=== PATIENT | female | born 1945 | race Caucasian/White ===

== ENCOUNTER 2016-05-18 23:02 | Inpatient (IN) | payer OTHER ==
[~2016-05-18] VITALS: Ht 154.9 cm; Wt 34.0 kg
[2016-05-19 01:10] LABS: CALCIUM 8.5 mg/dL (8.5-10.1); CARBON DIOXIDE 28.5 mmol/L (21-32); CHLORIDE SERUM 106 mmol/L (98-107); CREATININE SERUM 0.7 mg/dL (0.6-1.0); GFR1 > 60 mL/min; GLUCOSE SERUM 109 mg/dL (74-106); SODIUM SERUM 141 mmol/L (136-145)
[2016-05-19 01:14] LABS: ALBUMIN 2.6 g/dL (3.4-5.0); ALKALINE PHOSPHATASE 121 U/L (46-116); ALT/SGPT 21 U/L (14-59); AST/SGOT 31 U/L (15-37); BILIRUBIN TOTAL 0.26 mg/dL (0.20-1.00); PLATELET COUNT 314 x10^3mcL (130-400); TOTAL PROTEIN, SERUM 8.7 g/dL (6.4-8.2)
[2016-05-19 01:15] LABS: RED CELL DISTRIBUTION WIDTH 15.8 % (11.5-14.5)
[2016-05-19 01:39] LABS: BAND NEUTROPHIL 2 % (0-10); METAMYELOCTE 1 % (0-2); MONOCYTE 5 % (0-7); SEGMENTED NEUTROPHILS 68 % (37-75)
[2016-05-19 01:43] LABS: ovalocyte/elliptocyte 1+; rbc morphology (normal/abnorm) ABNORMAL (NORMAL)
[2016-05-19 01:44] LABS: PLATELET MORPHOLOGY FEW LARGE PLATELET
[2016-05-19] MEDS ORDERED: MOT800 PO (01:56)
[2016-05-19 02:48] LABS: MAGNESIUM 2.1 mg/dL (1.8-2.4); PHOSPHOROUS 3.8 mg/dL (2.5-4.9)
[2016-05-19 02:49] LABS: CHOLESTEROL/HDL RATIO 2.5
[2016-05-19 02:56] LABS: FREE T4 1.15 ng/dL (0.76-1.46); FREE THYROXINE INDEX 2.1 ug/dL (1.4-4.5); T4(THYROXINE) 6.9 ug/dL (4.7-13.3)
[2016-05-19 03:16] LABS: T3 TOTAL 0.77 ng/mL
[2016-05-19 03:48] VITALS: BP 133/82
[2016-05-19 05:10] LABS: microscopic required? YES; urine erythrocyte 3+ (NEGATIVE)
[2016-05-19 05:31] LABS: AMPHETAMINE QUAL UR POSITIVE (NEG <=1000)
[2016-05-19 08:50] LABS: IRON 17 ug/dL (50-170); TOTAL IRON BINDING CAPACITY 454 ug/dL (250-450)
[2016-05-19 08:51] VITALS: BP 128/68
[2016-05-19 08:58] LABS: RED BLOOD CELLS 4.33 M/mm3 (4.10-5.10)
[2016-05-19 14:40] VITALS: BP 107/67
[2016-05-19 18:03] VITALS: BP 117/76
[2016-05-19 21:37] VITALS: BP 128/55
[2016-05-20 06:19] VITALS: BP 114/63
[2016-05-20 08:58] VITALS: BP 126/60
[2016-05-20 17:12] VITALS: BP 138/62
[2016-05-20 21:36] VITALS: BP 123/61
[2016-05-21 05:37] VITALS: BP 137/76
[2016-05-21 06:15] LABS: BASOPHIL % 0.6 % (0-2); PLATELET COUNT 261 x10^3mcL (130-400)
[2016-05-21 06:25] LABS: CALCIUM 7.8 mg/dL (8.5-10.1); CARBON DIOXIDE 27.4 mmol/L (21-32); CHLORIDE SERUM 107 mmol/L (98-107); CREATININE SERUM 0.6 mg/dL (0.6-1.0); GFR1 > 60 mL/min; GLUCOSE SERUM 76 mg/dL (74-106); MAGNESIUM 1.8 mg/dL (1.8-2.4); PHOSPHOROUS 2.5 mg/dL (2.5-4.9); POTASSIUM SERUM 3.7 mmol/L (3.5-5.1); SODIUM SERUM 139 mmol/L (136-145)
[2016-05-21 07:12] LABS: RED CELL DISTRIBUTION WIDTH 17.4 % (11.5-14.5)
[2016-05-21 09:49] LABS: rbc morphology (normal/abnorm) ABNORMAL (NORMAL)
[2016-05-21 11:00] VITALS: BP 125/69
== END 2016-05-21 16:05 | disposition home or self-care (01) | DRG 480 ==
LOC: ED 23:02 → MU 05-19 01:44 → DU 05-19 01:44 → MU 05-19 16:13
PROVIDERS: Emergency Medicine; Family Medicine; Neuromusculoskeletal Medicine, Sports Medicine; ADMIT Family Medicine
PROC: 0QS704Z Reposition Left Upper Femur with Internal Fixation Device, Open Approach (ICD-10-PCS; principal; 2016-05-19 13:30)
DX: S72.012A Unspecified intracapsular fracture of left femur, initial encounter for closed fracture (principal); N17.0 Acute kidney failure with tubular necrosis; E43 Unspecified severe protein-calorie malnutrition; N39.0 Urinary tract infection, site not specified; S40.811A Abrasion of right upper arm, initial encounter; E11.65 Type 2 diabetes mellitus with hyperglycemia; E11.51 Type 2 diabetes mellitus with diabetic peripheral angiopathy without gangrene; D50.9 Iron deficiency anemia, unspecified; F17.210 Nicotine dependence, cigarettes, uncomplicated; W01.0XXA Fall on same level from slipping, tripping and stumbling without subsequent striking against object, initial encounter; Y92.9 Unspecified place or not applicable
CPT/HCPCS: 80307; 82962; 83880; 84439; 97110-GP; 97116-GP; 97530-GP; C1713; J0690; J0696; J1644; J1885; J2175; J2250; J2270; J3010; J3490; J7030; Q0092

== ENCOUNTER 2016-06-28 17:35 | Emergency (ER) | payer OTHER ==
[~2016-06-28] VITALS: Ht 154.9 cm; Wt 31.9 kg
[~2016-06-28 17:35] MED LIST: MOT800 PO
[2016-06-28 19:34] VITALS: BP 133/67
== END 2016-06-28 19:20 | disposition home or self-care (01) ==
LOC: ED 17:35
DX: M54.30 Sciatica, unspecified side (principal); M25.552 Pain in left hip; I10 Essential (primary) hypertension; E11.9 Type 2 diabetes mellitus without complications; F17.210 Nicotine dependence, cigarettes, uncomplicated; Z79.1 Long term (current) use of non-steroidal anti-inflammatories (NSAID); Z98.890 Other specified postprocedural states

== ENCOUNTER 2017-10-27 20:34 | Emergency (ER) | payer OTHER ==
[2017-10-27 22:44] VITALS: BP 128/73
== END 2017-10-27 22:44 | disposition home or self-care (01) ==
LOC: ED 20:34
DX: L03.116 Cellulitis of left lower limb (principal)

== ENCOUNTER 2017-11-17 22:00 | Inpatient (IN) | payer OTHER ==
[~2017-11-17] VITALS: Ht 157.5 cm; Wt 32.2 kg
[2017-11-17 23:17] LABS: ALKALINE PHOSPHATASE 115 U/L (46-116); ALT/SGPT 16 U/L (14-59); AST/SGOT 24 U/L (15-37); BILIRUBIN TOTAL 0.2 mg/dL (0.20-1.00); CALCIUM 8.4 mg/dL (8.5-10.1); CARBON DIOXIDE 25.2 mmol/L (21-32); CHLORIDE SERUM 102 mmol/L (98-107); CREATININE SERUM 0.6 mg/dL (0.6-1.0); GLUCOSE SERUM 79 mg/dL (74-106); SODIUM SERUM 137 mmol/L (136-145)
[2017-11-17 23:18] LABS: ALBUMIN 2.1 g/dL (3.4-5.0); TOTAL PROTEIN, SERUM 9.5 g/dL (6.4-8.2)
[2017-11-17 23:19] LABS: POTASSIUM SERUM 2.9 mmol/L (3.5-5.1)
[2017-11-17 23:33] LABS: BASOPHIL % 1.1 % (0-2); PLATELET COUNT 386 x10^3mcL (130-400); RED CELL DISTRIBUTION WIDTH 17.5 % (11.5-14.5)
[2017-11-18 01:01] VITALS: BP 181/85
[2017-11-18 01:52] LABS: CHOLESTEROL/HDL RATIO 2.7; MAGNESIUM 1.7 mg/dL (1.8-2.4); PHOSPHOROUS 2.7 mg/dL (2.5-4.9)
[2017-11-18 01:53] LABS: T3 TOTAL 0.66 ng/mL
[2017-11-18 02:17] LABS: FREE T4 0.91 ng/dL (0.76-1.46); FREE THYROXINE INDEX 1.9 ug/dL (1.4-4.5); T4(THYROXINE) 5.8 ug/dL (4.7-13.3)
[2017-11-18 05:53] VITALS: BP 151/82
[2017-11-18 06:23] LABS: UA SPECIFIC GRAVITY 1.025 (1.005-1.035); microscopic required? YES; urine erythrocyte NEGATIVE (NEGATIVE)
[2017-11-18 09:19] VITALS: BP 146/84
[2017-11-18 10:03] LABS: RED BLOOD CELLS 4.64 M/mm3 (4.10-5.10)
[2017-11-18 11:00] LABS: TOTAL IRON BINDING CAPACITY 298 ug/dL (250-450)
[2017-11-18 11:05] LABS: IRON 15 ug/dL (50-170)
[2017-11-18 16:13] VITALS: Ht 157.5 cm; Wt 32.2 kg
[2017-11-18 17:33] VITALS: BP 131/70
[2017-11-18 17:44] LABS: BASOPHIL % 0.9 % (0-2); PLATELET COUNT 346 x10^3mcL (130-400); RED CELL DISTRIBUTION WIDTH 18.2 % (11.5-14.5)
[2017-11-18 17:48] LABS: CALCIUM 8.3 mg/dL (8.5-10.1); CARBON DIOXIDE 27.1 mmol/L (21-32); CHLORIDE SERUM 105 mmol/L (98-107); CREATININE SERUM 0.7 mg/dL (0.6-1.0); GLUCOSE SERUM 95 mg/dL (74-106); POTASSIUM SERUM 4.3 mmol/L (3.5-5.1); SODIUM SERUM 136 mmol/L (136-145)
[2017-11-18 21:22] VITALS: BP 148/84
[2017-11-19 04:49] VITALS: BP 166/86
[2017-11-19 09:15] VITALS: BP 121/81
[2017-11-19 12:29] LABS: BASOPHIL % 0.6 % (0-2); PLATELET COUNT 319 x10^3mcL (130-400); RED CELL DISTRIBUTION WIDTH 17.7 % (11.5-14.5)
[2017-11-19 12:36] LABS: CALCIUM 8.1 mg/dL (8.5-10.1); CARBON DIOXIDE 25.2 mmol/L (21-32); CHLORIDE SERUM 104 mmol/L (98-107); CREATININE SERUM 0.6 mg/dL (0.6-1.0); GLUCOSE SERUM 109 mg/dL (74-106); POTASSIUM SERUM 4.2 mmol/L (3.5-5.1); SODIUM SERUM 137 mmol/L (136-145)
[2017-11-19] MEDS ORDERED: ZES10 PO (12:45)
[2017-11-19] MEDS ORDERED: CLEOCIN HCL300 MG PO (12:45)
[2017-11-19 13:51] VITALS: BP 121/81
== END 2017-11-19 16:23 | disposition home health service (06) | DRG 602 ==
LOC: ED 22:00 → MU 23:59
PROVIDERS: Emergency Medicine; Internal Medicine
DX: L03.116 Cellulitis of left lower limb (principal); E43 Unspecified severe protein-calorie malnutrition; R64 Cachexia; Z68.1 Body mass index [BMI] 19.9 or less, adult; L97.829 Non-pressure chronic ulcer of other part of left lower leg with unspecified severity; E86.0 Dehydration; I70.248 Atherosclerosis of native arteries of left leg with ulceration of other part of lower leg; E87.6 Hypokalemia; E83.42 Hypomagnesemia; E83.51 Hypocalcemia; R73.03 Prediabetes; D50.9 Iron deficiency anemia, unspecified; F17.210 Nicotine dependence, cigarettes, uncomplicated
CPT/HCPCS: 84439; 97116-GP; 99406; J0696; J2270; J2405; J3370; J7030; J7050; Q0092

== ENCOUNTER 2018-02-01 21:39 | Emergency (ER) | payer OTHER ==
[~2018-02-01] VITALS: Ht 160 cm; Wt 29.1 kg
[~2018-02-01 21:39] MED LIST changes: +CLEOCIN HCL300 MG PO; +ZES10 PO
[2018-02-01 23:57] VITALS: BP 138/56
== END 2018-02-01 23:55 | disposition home or self-care (01) ==
LOC: ED 21:39
DX: S42.291A Other displaced fracture of upper end of right humerus, initial encounter for closed fracture (principal); Z98.890 Other specified postprocedural states; W01.0XXA Fall on same level from slipping, tripping and stumbling without subsequent striking against object, initial encounter; Y93.01 Activity, walking, marching and hiking; Y92.89 Other specified places as the place of occurrence of the external cause; Y99.8 Other external cause status
CPT/HCPCS: J1885; Q0092

== ENCOUNTER 2018-03-02 16:12 | Inpatient (IN) | payer OTHER ==
[~2018-03-02] VITALS: Ht 160 cm; Wt 34.0 kg
[2018-03-02 16:30] VITALS: Ht 160 cm; Wt 34.0 kg
[2018-03-02 18:18] LABS: UA SPECIFIC GRAVITY 1.015 (1.005-1.035); microscopic required? YES; urine erythrocyte TRACE (NEGATIVE)
[2018-03-02 18:19] LABS: BASOPHIL % 0.6 % (0-2); PLATELET COUNT 197 x10^3mcL (130-400)
[2018-03-02 18:28] LABS: CARBON DIOXIDE 33.7 mmol/L (21-32); CHLORIDE SERUM 104 mmol/L (98-107); CREATININE SERUM 0.6 mg/dL (0.6-1.0); GLUCOSE SERUM 89 mg/dL (74-106); POTASSIUM SERUM 3.2 mmol/L (3.5-5.1); SODIUM SERUM 139 mmol/L (136-145)
[2018-03-02 18:38] LABS: RED CELL DISTRIBUTION WIDTH 24.7 % (11.5-14.5)
[2018-03-02 18:40] LABS: ALKALINE PHOSPHATASE 254 U/L (46-116); ALT/SGPT 54 U/L (14-59); AST/SGOT 43 U/L (15-37); BILIRUBIN TOTAL 0.5 mg/dL (0.20-1.00); LIPASE 236 IU/L (73-393); TOTAL PROTEIN, SERUM 6.8 g/dL (6.4-8.2)
[2018-03-02 18:42] LABS: ALBUMIN 2.6 g/dL (3.4-5.0)
[2018-03-02 18:54] LABS: rbc morphology (normal/abnorm) ABNORMAL (NORMAL)
[2018-03-02 21:29] LABS: CHOLESTEROL/HDL RATIO 3.3; MAGNESIUM 1.7 mg/dL (1.8-2.4); PHOSPHOROUS 2.3 mg/dL (2.5-4.9)
[2018-03-02 22:52] VITALS: BP 136/61
[2018-03-03 06:10] VITALS: BP 130/68
[2018-03-03 08:56] LABS: CARBON DIOXIDE 30.6 mmol/L (21-32); CHLORIDE SERUM 107 mmol/L (98-107); CREATININE SERUM 0.5 mg/dL (0.6-1.0); GLUCOSE SERUM 85 mg/dL (74-106); MAGNESIUM 1.6 mg/dL (1.8-2.4); PHOSPHOROUS 1.8 mg/dL (2.5-4.9); SODIUM SERUM 140 mmol/L (136-145)
[2018-03-03 09:04] LABS: POTASSIUM SERUM 2.5 mmol/L (3.5-5.1)
[2018-03-03 09:19] LABS: BASOPHIL % 0.3 % (0-2); PLATELET COUNT 189 x10^3mcL (130-400)
[2018-03-03 09:21] LABS: RED CELL DISTRIBUTION WIDTH 25.1 % (11.5-14.5)
[2018-03-03 10:05] VITALS: BP 132/70
[2018-03-03 17:30] VITALS: BP 135/69
[2018-03-03 20:50] VITALS: BP 149/67
[2018-03-04 05:20] VITALS: BP 108/59
[2018-03-04 07:15] LABS: BASOPHIL % 0.6 % (0-2); PLATELET COUNT 193 x10^3mcL (130-400); RED CELL DISTRIBUTION WIDTH 25.1 % (11.5-14.5)
[2018-03-04 07:24] LABS: CALCIUM 7.8 mg/dL (8.5-10.1); CARBON DIOXIDE 28.3 mmol/L (21-32); CHLORIDE SERUM 114 mmol/L (98-107); CREATININE SERUM 0.4 mg/dL (0.6-1.0); GLUCOSE SERUM 76 mg/dL (74-106); MAGNESIUM 1.7 mg/dL (1.8-2.4); PHOSPHOROUS 1.5 mg/dL (2.5-4.9); POTASSIUM SERUM 4.3 mmol/L (3.5-5.1); SODIUM SERUM 148 mmol/L (136-145)
[2018-03-04 08:54] VITALS: BP 100/62
[2018-03-04 10:13] LABS: rbc morphology (normal/abnorm) ABNORMAL (NORMAL); target cell (codocyte) 1+; tear drop cell (dacryocyte) 1+
[2018-03-04 16:39] VITALS: BP 137/71
[2018-03-04 20:23] VITALS: BP 135/67
[2018-03-05 04:44] VITALS: BP 161/78
[2018-03-05] MEDS ORDERED: REM15 PO (14:12)
[2018-03-05] MEDS ORDERED: MEG40 PO (14:12)
[2018-03-05] MEDS ORDERED: THERA-M CAPLET1 EACH PO (14:13)
[2018-03-05] MEDS ORDERED: VITC PO (14:13)
[2018-03-05 17:19] VITALS: BP 144/80
[2018-03-05 17:28] VITALS: BP 144/80
[2018-03-05] MEDS ORDERED: LEV250PM IV (18:40)
== END 2018-03-05 19:00 | DRG 689 ==
LOC: ED 16:12 → MU 20:26
PROVIDERS: Emergency Medicine; ADMIT Internal Medicine
DX: N39.0 Urinary tract infection, site not specified (principal); E43 Unspecified severe protein-calorie malnutrition; G93.41 Metabolic encephalopathy; R64 Cachexia; Z68.1 Body mass index [BMI] 19.9 or less, adult; B96.20 Unspecified Escherichia coli [E. coli] as the cause of diseases classified elsewhere; E86.0 Dehydration; R29.6 Repeated falls; T14.8XXA Other injury of unspecified body region, initial encounter; E87.6 Hypokalemia; E83.39 Other disorders of phosphorus metabolism; E83.42 Hypomagnesemia; D63.8 Anemia in other chronic diseases classified elsewhere; F17.210 Nicotine dependence, cigarettes, uncomplicated; Z16.12 Extended spectrum beta lactamase (ESBL) resistance; Z53.29 Procedure and treatment not carried out because of patient's decision for other reasons; Z91.81 History of falling; W19.XXXA Unspecified fall, initial encounter; Y92.009 Unspecified place in unspecified non-institutional (private) residence as the place of occurrence of the external cause
CPT/HCPCS: 83880; 84439; J0696; J1885; J1956; J3480; J7030; Q0092

== ENCOUNTER 2018-03-09 10:31 | Emergency (ER) | payer OTHER ==
[~2018-03-09] VITALS: Ht 152.4 cm; Wt 40.8 kg
[~2018-03-09 10:31] MED LIST changes: +LEV250PM IV; +MEG40 PO; +REM15 PO; +THERA-M CAPLET1 EACH PO; +VITC PO
[2018-03-09 10:54] VITALS: Ht 152.4 cm; Wt 40.8 kg
[2018-03-09 11:31] LABS: BASOPHIL % 1.1 % (0-2); PLATELET COUNT 276 x10^3mcL (130-400)
[2018-03-09 11:35] LABS: CALCIUM 8.2 mg/dL (8.5-10.1); CARBON DIOXIDE 26.3 mmol/L (21-32); CHLORIDE SERUM 107 mmol/L (98-107); CREATININE SERUM 0.5 mg/dL (0.6-1.0); GLUCOSE SERUM 87 mg/dL (74-106); POTASSIUM SERUM 3.4 mmol/L (3.5-5.1); SODIUM SERUM 140 mmol/L (136-145)
[2018-03-09 11:40] LABS: ALKALINE PHOSPHATASE 192 U/L (46-116); ALT/SGPT 42 U/L (14-59); AST/SGOT 44 U/L (15-37); BILIRUBIN TOTAL 0.2 mg/dL (0.20-1.00); TOTAL PROTEIN, SERUM 6.7 g/dL (6.4-8.2)
[2018-03-09 11:43] LABS: ALBUMIN 2.2 g/dL (3.4-5.0)
[2018-03-09 16:40] VITALS: BP 140/74
== END 2018-03-09 16:40 | disposition home or self-care (01) ==
LOC: ED 10:31
PROVIDERS: Emergency Medicine
DX: S51.811A Laceration without foreign body of right forearm, initial encounter (principal); S00.83XA Contusion of other part of head, initial encounter; M54.40 Lumbago with sciatica, unspecified side; F03.90 Unspecified dementia, unspecified severity, without behavioral disturbance, psychotic disturbance, mood disturbance, and anxiety; D50.0 Iron deficiency anemia secondary to blood loss (chronic); Z98.890 Other specified postprocedural states; W18.30XA Fall on same level, unspecified, initial encounter; Y93.89 Activity, other specified; Y92.89 Other specified places as the place of occurrence of the external cause; Y99.8 Other external cause status
CPT/HCPCS: 36415; 90715; J2001

== ENCOUNTER 2018-04-14 11:53 | Emergency (ER) | payer OTHER ==
[~2018-04-14] VITALS: Ht 152.4 cm; Wt 34.0 kg
[2018-04-14 11:59] VITALS: Ht 152.4 cm; Wt 34.0 kg
[2018-04-14 13:03] LABS: PLATELET COUNT 297 x10^3mcL (130-400)
[2018-04-14 13:09] LABS: RED CELL DISTRIBUTION WIDTH 18.2 % (11.5-14.5)
[2018-04-14 13:13] LABS: CALCIUM 8.7 mg/dL (8.5-10.1); CARBON DIOXIDE 20.7 mmol/L (21-32); CHLORIDE SERUM 110 mmol/L (98-107); CREATININE SERUM 0.7 mg/dL (0.6-1.0); GLUCOSE SERUM 96 mg/dL (74-106); POTASSIUM SERUM 3.1 mmol/L (3.5-5.1); SODIUM SERUM 142 mmol/L (136-145)
[2018-04-14 13:14] LABS: LIPASE 235 IU/L (73-393)
[2018-04-14 13:28] LABS: ALKALINE PHOSPHATASE 121 U/L (46-116); ALT/SGPT 49 U/L (14-59); AST/SGOT 50 U/L (15-37); BILIRUBIN TOTAL 0.2 mg/dL (0.20-1.00)
[2018-04-14 13:30] LABS: ALBUMIN 2.2 g/dL (3.4-5.0)
[2018-04-14 13:58] LABS: BAND NEUTROPHIL 14 % (0-10); BASOPHIL 0 % (0-2); MONOCYTE 3 % (0-7); SEGMENTED NEUTROPHILS 77 % (37-75)
[2018-04-14 13:59] LABS: PLATELET MORPHOLOGY PLATELETS NORMAL; rbc morphology (normal/abnorm) ABNORMAL (NORMAL)
[2018-04-14 14:00] LABS: schistocyte (helmet cell) 1+
[2018-04-14 15:41] LABS: UA SPECIFIC GRAVITY 1.015 (1.005-1.035); microscopic required? YES; urine erythrocyte NEGATIVE (NEGATIVE)
[2018-04-14 17:33] VITALS: BP 123/71
== END 2018-04-14 17:33 | disposition left against medical advice (07) ==
LOC: ED 11:53
PROVIDERS: Emergency Medicine
DX: N39.0 Urinary tract infection, site not specified (principal); D72.829 Elevated white blood cell count, unspecified; E86.0 Dehydration; F03.90 Unspecified dementia, unspecified severity, without behavioral disturbance, psychotic disturbance, mood disturbance, and anxiety; J45.909 Unspecified asthma, uncomplicated; Z98.890 Other specified postprocedural states
CPT/HCPCS: J7030

== ENCOUNTER 2018-04-18 20:56 | Emergency (ER) | payer OTHER ==
[~2018-04-18] VITALS: Ht 152.4 cm; Wt 42.6 kg
[2018-04-18 21:20] VITALS: BP 167/98; Ht 152.4 cm; Wt 42.6 kg
== END 2018-04-18 22:08 | disposition home or self-care (01) ==
LOC: ED 20:56
DX: M25.511 Pain in right shoulder (principal)

== ENCOUNTER 2018-04-23 09:33 | Inpatient (IN) | payer OTHER ==
[~2018-04-23] VITALS: Ht 142.2 cm; Wt 26.2 kg
[2018-04-23 10:45] LABS: UA SPECIFIC GRAVITY 1.015 (1.005-1.035); microscopic required? YES; urine erythrocyte NEGATIVE (NEGATIVE)
[2018-04-23 11:10] LABS: BASOPHIL % 0.3 % (0-2); PLATELET COUNT 254 x10^3mcL (130-400)
[2018-04-23 11:12] LABS: RED CELL DISTRIBUTION WIDTH 17.9 % (11.5-14.5)
[2018-04-23 11:24] LABS: CALCIUM 7.6 mg/dL (8.5-10.1); CARBON DIOXIDE 24.4 mmol/L (21-32); CHLORIDE SERUM 107 mmol/L (98-107); CREATININE SERUM 0.8 mg/dL (0.6-1.0); GLUCOSE SERUM 117 mg/dL (74-106); POTASSIUM SERUM 3.3 mmol/L (3.5-5.1); SODIUM SERUM 141 mmol/L (136-145)
[2018-04-23 11:36] LABS: ALKALINE PHOSPHATASE 169 U/L (46-116); ALT/SGPT 69 U/L (14-59); AMYLASE 26 U/L (25-115); AST/SGOT 130 U/L (15-37); BILIRUBIN TOTAL 0.3 mg/dL (0.20-1.00); LIPASE 40 IU/L (73-393); TOTAL PROTEIN, SERUM 7.8 g/dL (6.4-8.2)
[2018-04-23 11:40] LABS: ALBUMIN 2.2 g/dL (3.4-5.0); CHOLESTEROL 105 mg/dL (<200); HDL CHOLESTEROL 74 mg/dL (40-60)
[2018-04-23 13:24] LABS: AMPHETAMINE QUAL UR POSITIVE (See below)
[2018-04-23] MEDS ORDERED: NORCO1 TA2 PO (13:25)
[2018-04-23] MEDS ORDERED: COLACE100 MG PO (13:25)
[2018-04-23] MEDS ORDERED: IBUPROFEN400 MG PO (13:25)
[2018-04-23 16:00] VITALS: BP 129/76
[2018-04-23 16:25] VITALS: BP 129/76
[2018-04-23 18:07] VITALS: BP 153/84
[2018-04-23 19:32] VITALS: BP 156/83
[2018-04-23 23:10] VITALS: BP 120/65; BP 140/73
[2018-04-24 03:22] VITALS: BP 147/83
[2018-04-24 04:51] LABS: BASOPHIL % 0.4 % (0-2); PLATELET COUNT 188 x10^3mcL (130-400)
[2018-04-24 04:59] LABS: RED CELL DISTRIBUTION WIDTH 18.4 % (11.5-14.5)
[2018-04-24 05:13] LABS: CALCIUM 6.6 mg/dL (8.5-10.1); CARBON DIOXIDE 19.9 mmol/L (21-32); CHLORIDE SERUM 112 mmol/L (98-107); CREATININE SERUM 0.6 mg/dL (0.6-1.0); GLUCOSE SERUM 120 mg/dL (74-106); MAGNESIUM 1.5 mg/dL (1.8-2.4); PHOSPHOROUS 3.3 mg/dL (2.5-4.9); SODIUM SERUM 144 mmol/L (136-145)
[2018-04-24 05:14] LABS: acanthocyte (spur cell) 3+; rbc morphology (normal/abnorm) ABNORMAL (NORMAL); target cell (codocyte) 1+
[2018-04-24 05:18] LABS: POTASSIUM SERUM 2.7 mmol/L (3.5-5.1)
[2018-04-24 08:00] VITALS: BP 153/84
[2018-04-24 11:35] LABS: CALCIUM 6.9 mg/dL (8.5-10.1); CARBON DIOXIDE 16.8 mmol/L (21-32); CHLORIDE SERUM 109 mmol/L (98-107); CREATININE SERUM 0.8 mg/dL (0.6-1.0); GLUCOSE SERUM 176 mg/dL (74-106); SODIUM SERUM 140 mmol/L (136-145)
[2018-04-24 11:53] LABS: POTASSIUM SERUM 2.8 mmol/L (3.5-5.1)
[2018-04-24 12:00] VITALS: BP 150/85
[2018-04-24 14:47] LABS: BASOPHIL % 0.2 % (0-2); PLATELET COUNT 175 x10^3mcL (130-400)
[2018-04-24 14:48] LABS: RED CELL DISTRIBUTION WIDTH 20.6 % (11.5-14.5)
[2018-04-24 14:54] LABS: CALCIUM 6.8 mg/dL (8.5-10.1); CARBON DIOXIDE 23.1 mmol/L (21-32); CHLORIDE SERUM 111 mmol/L (98-107); CREATININE SERUM 0.7 mg/dL (0.6-1.0); GLUCOSE SERUM 111 mg/dL (74-106); POTASSIUM SERUM 3.8 mmol/L (3.5-5.1); SODIUM SERUM 143 mmol/L (136-145)
[2018-04-24 16:00] VITALS: BP 155/88
[2018-04-24 19:01] VITALS: BP 164/111
[2018-04-24 20:05] LABS: CALCIUM 6.4 mg/dL (8.5-10.1); CARBON DIOXIDE 21.9 mmol/L (21-32); CHLORIDE SERUM 117 mmol/L (98-107); CREATININE SERUM 0.5 mg/dL (0.6-1.0); GLUCOSE SERUM 125 mg/dL (74-106); POTASSIUM SERUM 3.8 mmol/L (3.5-5.1); SODIUM SERUM 149 mmol/L (136-145)
[2018-04-25 00:01] VITALS: BP 157/93
[2018-04-25 04:00] VITALS: BP 146/76
[2018-04-25 07:36] VITALS: Ht 142.2 cm; Wt 26.2 kg
[2018-04-25 07:56] VITALS: BP 146/97
[2018-04-25 16:37] VITALS: BP 138/82
[2018-04-25 19:50] VITALS: BP 135/63
[2018-04-26 04:55] VITALS: BP 120/76
[2018-04-26 07:02] LABS: ALKALINE PHOSPHATASE 99 U/L (46-116); ALT/SGPT 39 U/L (14-59); AST/SGOT 42 U/L (15-37); BILIRUBIN TOTAL 0.6 mg/dL (0.20-1.00); CALCIUM 7.3 mg/dL (8.5-10.1); CARBON DIOXIDE 26.4 mmol/L (21-32); CHLORIDE SERUM 106 mmol/L (98-107); CREATININE SERUM 0.4 mg/dL (0.6-1.0); GLUCOSE SERUM 70 mg/dL (74-106); MAGNESIUM 1.7 mg/dL (1.8-2.4); PHOSPHOROUS 1.5 mg/dL (2.5-4.9); SODIUM SERUM 138 mmol/L (136-145)
[2018-04-26 07:07] LABS: ALBUMIN 1.6 g/dL (3.4-5.0); POTASSIUM SERUM 2.6 mmol/L (3.5-5.1); TOTAL PROTEIN, SERUM 5.8 g/dL (6.4-8.2)
[2018-04-26 07:32] LABS: BASOPHIL % 0.7 % (0-2); PLATELET COUNT 132 x10^3mcL (130-400)
[2018-04-26 07:44] LABS: RED CELL DISTRIBUTION WIDTH 19.4 % (11.5-14.5)
[2018-04-26 09:49] VITALS: BP 139/72
[2018-04-26 12:10] LABS: CALCIUM 7.5 mg/dL (8.5-10.1); CREATININE SERUM 0.3 mg/dL (0.6-1.0); SODIUM SERUM 141 mmol/L (136-145)
[2018-04-26 12:57] LABS: CARBON DIOXIDE 25.8 mmol/L (21-32); CHLORIDE SERUM 109 mmol/L (98-107); GLUCOSE SERUM 63 mg/dL (74-106)
[2018-04-26 13:09] VITALS: BP 122/55
[2018-04-26 17:09] VITALS: BP 122/55
[2018-04-26 17:48] VITALS: BP 107/42
[2018-04-26 22:20] VITALS: BP 123/67
[2018-04-27 05:16] VITALS: BP 133/66
[2018-04-27 06:59] LABS: CALCIUM 7.6 mg/dL (8.5-10.1); CARBON DIOXIDE 24.9 mmol/L (21-32); CHLORIDE SERUM 107 mmol/L (98-107); CREATININE SERUM 0.4 mg/dL (0.6-1.0); GLUCOSE SERUM 137 mg/dL (74-106); PHOSPHOROUS 1.9 mg/dL (2.5-4.9); POTASSIUM SERUM 3.7 mmol/L (3.5-5.1); SODIUM SERUM 136 mmol/L (136-145)
[2018-04-27 07:29] LABS: BASOPHIL % 0.1 % (0-2)
[2018-04-27 07:33] LABS: PLATELET COUNT 126 x10^3mcL (130-400); RED CELL DISTRIBUTION WIDTH 19.7 % (11.5-14.5)
[2018-04-27 10:01] VITALS: BP 146/60
[2018-04-27 14:00] VITALS: BP 130/61
[2018-04-27 17:30] VITALS: BP 153/71
[2018-04-27 21:27] VITALS: BP 139/60
[2018-04-28 06:28] VITALS: BP 136/86
[2018-04-28 06:51] LABS: CALCIUM 7.8 mg/dL (8.5-10.1); CARBON DIOXIDE 27.3 mmol/L (21-32); CHLORIDE SERUM 107 mmol/L (98-107); CREATININE SERUM 0.4 mg/dL (0.6-1.0); GLUCOSE SERUM 100 mg/dL (74-106); MAGNESIUM 1.8 mg/dL (1.8-2.4); PHOSPHOROUS 2.3 mg/dL (2.5-4.9); POTASSIUM SERUM 3.9 mmol/L (3.5-5.1); SODIUM SERUM 138 mmol/L (136-145)
[2018-04-28 09:31] LABS: BASOPHIL % 0.1 % (0-2)
[2018-04-28 09:36] LABS: PLATELET COUNT 101 x10^3mcL (130-400); RED CELL DISTRIBUTION WIDTH 20.5 % (11.5-14.5)
[2018-04-28 10:16] VITALS: BP 151/65
[2018-04-28 13:23] VITALS: BP 135/91
[2018-04-28 16:55] VITALS: BP 147/73
[2018-04-28 20:00] VITALS: BP 112/61
[2018-04-29 06:15] VITALS: BP 151/69
[2018-04-29 09:28] VITALS: BP 152/83
[2018-04-29 12:34] VITALS: BP 172/78
[2018-04-29 16:59] VITALS: BP 138/77
[2018-04-29 19:20] VITALS: BP 95/69
[2018-04-30 05:45] VITALS: BP 118/75
[2018-04-30 07:14] LABS: BASOPHIL % 0.7 % (0-2)
[2018-04-30 07:21] LABS: PLATELET COUNT 117 x10^3mcL (130-400); RED CELL DISTRIBUTION WIDTH 20.8 % (11.5-14.5)
[2018-04-30 07:25] LABS: CALCIUM 8.2 mg/dL (8.5-10.1); CARBON DIOXIDE 24.8 mmol/L (21-32); CHLORIDE SERUM 105 mmol/L (98-107); CREATININE SERUM 0.4 mg/dL (0.6-1.0); GLUCOSE SERUM 171 mg/dL (74-106); MAGNESIUM 1.8 mg/dL (1.8-2.4); PHOSPHOROUS 3.1 mg/dL (2.5-4.9); POTASSIUM SERUM 4.8 mmol/L (3.5-5.1); SODIUM SERUM 139 mmol/L (136-145)
[2018-04-30 09:36] VITALS: BP 161/68
[2018-04-30 10:40] VITALS: BP 161/68
[2018-04-30 14:19] VITALS: BP 144/72
[2018-04-30 17:53] VITALS: BP 147/73
[2018-04-30 21:55] VITALS: BP 138/72
[2018-05-01 05:46] VITALS: BP 136/82
[2018-05-01 09:21] VITALS: BP 154/71
[2018-05-01 17:29] VITALS: BP 125/71
[2018-05-01 20:32] VITALS: BP 137/64
[2018-05-02 05:41] VITALS: BP 137/66
[2018-05-02 07:11] LABS: CALCIUM 8.2 mg/dL (8.5-10.1); CARBON DIOXIDE 25.1 mmol/L (21-32); CHLORIDE SERUM 104 mmol/L (98-107); CREATININE SERUM 0.3 mg/dL (0.6-1.0); GLUCOSE SERUM 87 mg/dL (74-106); PHOSPHOROUS 3.5 mg/dL (2.5-4.9); POTASSIUM SERUM 4.6 mmol/L (3.5-5.1); SODIUM SERUM 133 mmol/L (136-145)
[2018-05-02 07:23] LABS: BASOPHIL % 0.7 % (0-2); PLATELET COUNT 228 x10^3mcL (130-400)
[2018-05-02 07:25] LABS: RED CELL DISTRIBUTION WIDTH 19.4 % (11.5-14.5)
[2018-05-02 08:53] VITALS: BP 160/67
[2018-05-02 12:43] VITALS: BP 142/81
[2018-05-02 21:36] VITALS: BP 100/52
[2018-05-03 06:05] VITALS: BP 114/50
[2018-05-03 09:24] VITALS: BP 140/73
[2018-05-03 12:49] VITALS: BP 138/65
[2018-05-03 17:27] VITALS: BP 143/73
[2018-05-03 19:10] VITALS: BP 121/55
[2018-05-04 06:03] VITALS: BP 140/62
[2018-05-04 12:50] VITALS: BP 143/76
[2018-05-04 13:00] VITALS: BP 143/76
[2018-05-04 16:18] VITALS: BP 143/83
[2018-05-04 20:03] VITALS: BP 150/89
[2018-05-05 05:20] VITALS: BP 157/90
[2018-05-05 06:24] LABS: BASOPHIL % 2.5 % (0-2); PLATELET COUNT 366 x10^3mcL (130-400); RED CELL DISTRIBUTION WIDTH 21.6 % (11.5-14.5)
[2018-05-05 06:32] LABS: CALCIUM 8.2 mg/dL (8.5-10.1); CARBON DIOXIDE 21.8 mmol/L (21-32); CHLORIDE SERUM 104 mmol/L (98-107); CREATININE SERUM 0.4 mg/dL (0.6-1.0); GLUCOSE SERUM 91 mg/dL (74-106); MAGNESIUM 1.9 mg/dL (1.8-2.4); POTASSIUM SERUM 4.2 mmol/L (3.5-5.1); SODIUM SERUM 136 mmol/L (136-145)
[2018-05-05 09:47] VITALS: BP 137/83
[2018-05-05 12:23] VITALS: BP 147/61
[2018-05-05 17:51] VITALS: BP 141/73
[2018-05-05 18:20] VITALS: BP 141/73
[2018-05-05 21:06] VITALS: BP 142/77
== END 2018-05-05 21:11 | disposition short-term general hospital (02) | DRG 871 ==
LOC: ED 09:33 → IC 14:44 → DU 14:44 → IC 15:20 → DU 15:31 → IC 15:31 → DU 04-25 11:44
PROVIDERS: Emergency Medicine; General Practice; ADMIT Internal Medicine
PROC: 30233N1 Transfusion of Nonautologous Red Blood Cells into Peripheral Vein, Percutaneous Approach (ICD-10-PCS; principal; 2018-04-24)
DX: A41.9 Sepsis, unspecified organism (principal); G92 Toxic encephalopathy; E43 Unspecified severe protein-calorie malnutrition; N17.0 Acute kidney failure with tubular necrosis; J96.21 Acute and chronic respiratory failure with hypoxia; J96.22 Acute and chronic respiratory failure with hypercapnia; R53.2 Functional quadriplegia; N39.0 Urinary tract infection, site not specified; Z68.1 Body mass index [BMI] 19.9 or less, adult; E16.2 Hypoglycemia, unspecified; R65.20 Severe sepsis without septic shock; I10 Essential (primary) hypertension; R74.0 Nonspecific elevation of levels of transaminase and lactic acid dehydrogenase [LDH]; E87.6 Hypokalemia; S00.03XA Contusion of scalp, initial encounter; F15.21 Other stimulant dependence, in remission; M54.30 Sciatica, unspecified side; D63.8 Anemia in other chronic diseases classified elsewhere; E83.42 Hypomagnesemia; F17.210 Nicotine dependence, cigarettes, uncomplicated; Z66 Do not resuscitate; Z51.5 Encounter for palliative care; Y93.89 Activity, other specified; X58.XXXA Exposure to other specified factors, initial encounter; Y92.89 Other specified places as the place of occurrence of the external cause; Y99.8 Other external cause status; Z87.11 Personal history of peptic ulcer disease
CPT/HCPCS: 36600; 82962; 83880; 87804; 97110-GP; 97116-GP; 97530-GP; G0480; J1885; J1956; J2060; J2270; J2930; J3475; J3480; J3490; J7030; J7040; J7050; J7131; J7620; P9016; Q0092; Q0163